=== PATIENT | female | born 1960 | race Caucasian/White ===

== ENCOUNTER 2021-01-10 10:02 | Emergency (ER) | payer OTHER, SELFPAY ==
[2021-01-10 10:17] VITALS: BP 126/71; PULSE 97; RESP 16; TEMP 37; O2SAT 98
--- NOTE | 2021-01-10 11:11 | ED.URI ---
HPI - URI/Sore Throat General Chief Complaint: Upper Respiratory Infection Stated Complaint: Sinus Pain Time Seen by Provider: 01/10/21 11:12 Source: patient History of Present Illness HPI Narrative: Patient presents with increased sinus congestion pressure and drainage for the past 10 days. Patient denies any shortness of breath and no chest pain. Patient has not been taken anything [id number] for her symptoms. Related Data Home Medications Medication Instructions Recorded Confirmed buprenorphine-naloxone 8 film SUBLINGUAL DAILY 01/10/21 01/10/21 omeprazole 40 mg PO DAILY 01/10/21 01/10/21 Allergies Allergy/AdvReac Type Severity Reaction Status Date / Time morphine Allergy Unknown Rash Verified 08/14/18 08:30 Review of Systems Review of Systems: CONSTITUTIONAL: Denies chills, or sweats. Reports fever and generalized body aches EYES: Denies visual changes, redness, or discharge. ENT: Denies otalgia. Reports nasal congestion runny nose and sore throat CARDIOVASCULAR: Denies chest pain, palpitations, or edema. RESPIRATORY: Denies dyspnea. Reports occasional cough GASTROINTESTINAL: Denies abdominal pain, nausea, vomiting, or diarrhea. GENITOURINARY: Denies dysuria or hematuria. SKIN: Denies rash or itching. MUSCULOSKELETAL: Denies back pain, joint pain, or myalgia. Reports generalized body aches NEUROLOGIC: Denies headache, numbness, or weakness. PSYCHIATRIC: Denies anxiety or depression. Exam Narrative: The patient is a well-developed, well-nourished in no acute distress. SKIN: Skin is warm and dry without erythema, swelling or exudate. There is good turgor. No tenting. HEAD: Atraumatic. Normocephalic. No temporal or scalp tenderness. EYES: Moist and bright. Sclera and conjunctivae normal. No discharge. PERRLA. Extraocular motions intact. Gross visual acuity intact. EARS: Pinna is normal shape and contour. Clear external auditory canals. TM pearly aneglo with good cone of light, no erythema or suppuration. Bilateral cerumen noted no gross hearing deficit. NOSE: pink, moist mucosa with good air movement. Clear rhinorrhea without nasal flaring. Septum midline. Mouth: moist mucous membranes. MODERATE MAXILLARY SINUS PRESSURE AND TENDERNESS THROAT; mild erythema noted to posterior oropharynx with moderate postnasal drainage. Without exudate or ulceration.. Uvula midline. Normal movement of soft palate. NECK: Supple and nontender with full range of motion without discomfort. No meningeal signs. LUNGS: Equal and bilateral breath sounds without wheezes, rales or rhonchi. CHEST: The chest wall is without retractions or use of accessory muscles. HEART: Has a regular rate and rhythm without murmur, gallops, click or rub. ABDOMEN: Soft, nontender with positive active bowel sounds. No rebound tenderness. EXTREMITIES: Without cyanosis, clubbing or edema. Equal 2+ distal pulses and 2 second capillary refill noted. NEUROLOGIC: alert, active, . The patient moves all extremities with normal muscle strength. Normal muscle tone is noted. Normal coordination is noted. NO focal neurological findings noted. Course Vital Signs Vital signs: Vital Signs Temperature 37.0 C 01/10/21 10:17 Pulse Rate 97 01/10/21 10:17 Respiratory Rate 16 01/10/21 10:17 Blood Pressure 126/71 01/10/21 10:17 Pulse Oximetry 98 01/10/21 10:17 Temperature 37.0 C 01/10/21 10:17 Pulse Rate 97 01/10/21 10:17 Respiratory Rate 16 01/10/21 10:17 Blood Pressure 126/71 01/10/21 10:17 Pulse Oximetry 98 01/10/21 10:17 Please OPAL schedule a followup visit with your personal physician for further evaluation and treatment. Including recheck and discussion of your blood pressure. If your symptoms persist, change or worsen significantly before you can contact your personal physician then please, without delay, go to the emergency department for further evaluation Critical dx considered and discussed with pt. Educated patient on red flag s/s and to
== END 2021-01-10 11:20 | disposition home or self-care (01) ==
PROVIDERS: Emergency Provider Nurse Practitioner Family
DX: J06.9 Acute upper respiratory infection, unspecified (principal); J32.9 Chronic sinusitis, unspecified; Z20.822 Contact with and (suspected) exposure to COVID-19
CPT/HCPCS: 87426; 87804; 99213; C9803; G0463

== ENCOUNTER 2023-12-23 12:33 | Emergency (ER) | payer OTHER, SELFPAY ==
[2023-12-23 12:35] VITALS: BP 140/77; PULSE 120; RESP 26; TEMP 37.1; O2SAT 92; O2SAT 98
--- NOTE | 2023-12-23 15:01 | ED.SOB ---
HPI - SOB/Dyspnea General Chief Complaint: Shortness of Breath/Dyspnea Stated Complaint: Sore Throat/Shortness of Breath Source: patient Mode of arrival: ambulatory Limitations: no limitations History of Present Illness HPI Narrative: 63 y/o female with history of end stage lung cancer presented for c/o shortness of breath and throat swelling. On arrival pt sat 92% RA; she was immediately taken to the procedure room where O2 3L was applied prior to completing registration. Ambulance was called. Pt states she wears home O2 at 3L per [place]. She drove herself. Says her eyes and throat have been swelling for about 2 weeks, and has been prescribed a steroid. Related Data Home Medications Medication Instructions Recorded Confirmed buprenorphine 8 mg-naloxone 2 mg 8 film sublingual DAILY 01/10/21 12/23/23 sublingual film omeprazole 40 mg capsule,delayed 40 mg PO DAILY 01/10/21 12/23/23 release fluticasone propionate 50 2 spray intranasal DAILY 12/23/23 12/23/23 mcg/actuation nasal spray,suspension gabapentin 300 mg capsule 300 mg PO TID 12/23/23 12/23/23 Allergies Allergy/AdvReac Type Severity Reaction Status Date / Time morphine Allergy Unknown Rash Verified 08/14/18 08:30 Review of Systems Review of Systems: ROS per HPI All systems reviewed & are unremarkable except as noted in HPI and below PMFSH Past Medical History Medical History (Updated 12/23/23 @ 15:25 by Mallika Mack APRN) Lung cancer Surgical History Surgical History (Updated 12/23/23 @ 15:20 by Mallika Mack APRN) Hx of cholecystectomy Comments At time of signature, I have reviewed and agree with nursing past medical, surgical, social and family history unless otherwise noted. Please see nursing chart for further information. There is no relevant family history pertinent to the presenting complaint Exam Narrative: GENERAL: Chronically ill appearing EYES: Erythematous with periorbital swelling ENT: Mucous membranes pink and moist. Thrush noted, Throat erythematous; hoarse voice. Uvula midline. NECK: Normal AROM. Supple. CHEST: Diminished to all cisneros. Speaking short sentences, labored. HEART: Regular rate and rhythm. ABDOMEN: Soft, nontender, distended Course Course Emergency Course: Patient is aware of diagnosis, understands and agrees to treatment plan. Anticipatory guidance given. Patient agrees to follow-up as directed and is aware of reasons to seek care at the emergency department. Portions of this record may have been created with voice recognition software Level of Care: Express Care Visit Vital Signs Vital signs: Vital Signs Temperature 98.8 F 12/23/23 12:35 Pulse Rate 120 H 12/23/23 12:35 Respiratory Rate 26 H 12/23/23 12:35 Blood Pressure 140/77 12/23/23 12:35 Pulse Oximetry 98 12/23/23 12:35 Oxygen Delivery Nasal Cannula 12/23/23 12:35 Oxygen Flow Rate 3 12/23/23 12:35 Temperature 98.8 F 12/23/23 12:35 Pulse Rate 120 H 12/23/23 12:35 Respiratory Rate 26 H 12/23/23 12:35 Blood Pressure 140/77 12/23/23 12:35 Pulse Oximetry 92 12/23/23 12:35 Oxygen Delivery Room Air 12/23/23 12:35 Oxygen Flow Rate 3 12/23/23 12:35 Transfer Transfered to: [facility] Transportation: ALS Transfer rationale: Pt is agreeable to transfer to [facility] via ambulance. Risks of transportation reviewed with pt including injury, worsening of condition and . v/u. Report called to hospital, spoke with Doni HOLLEY, Dr Case, accepting physician. Pt is in stable condition at time of transfer. Advised to remain NPO and go directly to the hospital. MDM - SOB/Dyspnea MDM Narrative Medical decision making narrative: Discussed physical exam findings. Advised EMS transfer. v/u. Differential Diagnosis Differential diagnosis: Likely acute exacerbation of chronic obstructive airways disease, congestive heart failure, community acquired
== END 2023-12-23 12:45 | disposition short-term general hospital (02) ==
PROVIDERS: Emergency Provider Nurse Practitioner Family
DX: J96.10 Chronic respiratory failure, unspecified whether with hypoxia or hypercapnia (principal); C34.90 Malignant neoplasm of unspecified part of unspecified bronchus or lung; Z79.899 Other long term (current) drug therapy
CPT/HCPCS: 99212; G0463